=== PATIENT | female | born 1970 | race Caucasian/White ===

== ENCOUNTER → 2018-09-16 10:59 | Outpatient (POV) | payer MEDICAID, SELFPAY ==
--- NOTE | 2018-09-16 11:14 | XR_ITS ---
XR chest 2V HISTORY: ITS.REASON: HYMOPTYSIS, BACTERIAL PNEUMONIA ORDERING PHYSICIAN: Pb Horner MD PATIENT AGE: 48 years COMPARISON: None FINDINGS: The heart size is unremarkable. There are no previous exams available for comparison. There is dense consolidation within the left upper lobe and apex with lucency noted within this area of consolidation which measures 4.4 x 3 cm with an air-fluid level. There is left upper lobe volume loss with hilar retraction superiorly on the left. In addition, patchy infiltrate is present in the right upper lobe. No acute bony anomalies. IMPRESSION: 1. Dense left upper lobe consolidation with central lucency and an air-fluid level. This could represent a necrotic neoplasm or dense pneumonia with abscess. There are no previous exams available for review. 2. Right upper lobe pneumonia.
[2018-09-17 14:18] LABS: Albumin 3.1 g/dL (2.9-4.4); Alpha-1-Globulin 0.4 g/dL (0.0-0.4); Alpha-2-Globulin 1.1 g/dL (0.4-1.0); Gamma Globulin 2.3 g/dL (0.4-1.8); Immunoglobulin A, Qn 301 mg/dL (87-352); Immunoglobulin G, Qn 2382 mg/dL (700-1600)
[2018-09-17 15:57] LABS: Immunoglobulin M, Qn 184 mg/dL (26-217)
== END ==
PROVIDERS: PCP Internal Medicine; Visit Provider Internal Medicine
DX: D89.2 Hypergammaglobulinemia, unspecified (principal); R04.2 Hemoptysis; J15.9 Unspecified bacterial pneumonia
CPT/HCPCS: 36415; 71046; 82784; 84155; 84165; 86334